=== PATIENT | male | born 1995 | race Caucasian/White ===

== ENCOUNTER 2017-04-03 07:56 | Emergency (ER) | payer BC ==
[2017-04-03 08:01] VITALS: BP 140/72
--- NOTE | 2017-04-03 11:30 | UC ---
Jun Ruelas Benjamin, scribed for Saadia Belle DO on 04/03/17 at 0838 . Throat Pain/Nasal Quoc HPI - HPI Summary HPI Summary: 21yo male reports inhaling dust last week, and shortly after, started to develop sore throat. Next day, pt started having fever, JUSTIN, body aches, and cough with green phlegm. Cough is interfering with sleep. Pt has been taking ibuprofen for his fever. Denies any ear aches, N/V, CP or SOB. No significant PMHx and FHX includes DM and HTN. - History of Current Complaint Chief Complaint: UCGeneralIllness Stated Complaint: RESP Time Seen by Provider: 04/03/17 08:28 Hx Obtained From: Patient Onset/Duration: Gradual Onset, Lasting Weeks - 1 week, Still Present Severity: Mild Pain Intensity: 3 Pain Scale Used: 0-10 Numeric Cough: Productive - green Associated Signs & Symptoms: Positive: Sinus Discomfort, Fever. Negative: Dysphagia, Drooling, Wheezing, Hoarseness, Vomiting - Allergies/Home Medications Allergies/Adverse Reactions: Allergies Allergy/AdvReac Type Severity Reaction Status Date / Time No Known Allergies Allergy Verified 04/03/17 08:02 PMH/Surg Hx/FS Hx/Imm Hx Previously Healthy: Yes Other History Of: Negative For: HIV, Hepatitis B, Hepatitis C - Surgical History Surgical History: Yes Surgery Procedure, Year, and Place: varicocele - Family History Known Family History: Positive: Hypertension, Diabetes - Social History Occupation: Employed Full-time Lives: With Family Alcohol Use: Rare Substance Use Type: None Smoking Status (MU): Never Smoked Tobacco Review of Systems Constitutional: Fever Skin: Negative Eyes: Negative ENT: Sore Throat, Nasal Discharge Respiratory: Cough Cardiovascular: Negative Gastrointestinal: Negative Genitourinary: Negative Motor: Negative Neurovascular: Negative Musculoskeletal: Negative Neurological: Headache Psychological: Negative All Other Systems Reviewed And Are Negative: Yes Physical Exam Triage Information Reviewed: Yes Appearance: Well-Appearing, No Pain Distress, Well-Nourished Vital Signs: Initial Vital Signs Temp 98.6 F 04/03/17 07:59 Pulse 74 04/03/17 07:59 Resp 16 04/03/17 07:59 BP 140/72 04/03/17 07:59 Pulse Ox 100 04/03/17 07:59 Vital Signs Reviewed: Yes Eyes: Positive: Conjunctiva Clear. Negative: Discharge ENT: Positive: Hearing grossly normal, Pharynx normal, Nasal congestion, Nasal drainage, TMs normal. Negative: Tonsillar swelling, Tonsillar exudate, Trismus , Muffled/hoarse voice Neck exam: Normal Neck: Positive: Supple, Nontender, No Lymphadenopathy Respiratory: Positive: Lungs clear, No respiratory distress, No accessory muscle use, Expiration - prolonged expiration at the bases Cardiovascular: Positive: RRR, No Murmur Musculoskeletal Exam: Normal Musculoskeletal: Positive: Strength Intact, ROM Intact Neurological: Positive: Alert, Muscle Tone Normal Psychological: Positive: Age Appropriate Behavior Skin Exam: Normal, Other - warm, dry, normal color Throat Pain/Nasal Course/Dx - Differential Dx/Diagnosis Differential Diagnosis/HQI/PQRI: Pharyngitis, Sinusitis, URI Provider Diagnoses: uri, bronchospasm Discharge - Discharge Plan Condition: Stable Disposition: HOME Prescriptions: Albuterol HFA INHALER* [Ventolin HFA Inhaler*] 2 puff INH Q4H PRN #1 mdi PRN Reason: Sob/Wheezing guaiFENesin ER TAB [Mucinex*] 600 mg PO BID PRN #1 box PRN Reason: Cough guaiFENesin/CODIEN 100MG-10MG* [Robitussin AC 100Mg-10Mg*] 5 - 10 ml PO BEDTIME PRN #100 udc MDD 10ml PRN Reason: Cough Patient Education Materials: Bronchospasm (ED), Upper Respiratory Infection (ED ) Referrals: No Primary Care Phys,NOPCP [Primary Care Provider] - (IF YOUR SYMPTOMS PERSIST FOR 4-7 MORE DAYS, FOLLOW UP WITH YOUR PCP AT [facility] FOR RE-EVALUATION) Additional Instructions: TRY USING THE NETTI POT IN THE MORNINGS DISCUSSED. YOU MUST ALWAYS USE CLEAN WATER. INHALED BRONCHODILATORS: You have received a prescription for an inhaled bronchodilator -- a medication which stimulates the airways in the lung to dilate. This improves the flow of air in asthma, bronchitis, and emphysema. These medicines have some similarity to adrenaline, and can cause similar side effects: shakiness, racing heart, and a sense of nervousness. These side effects decrease with time. Contact your doctor if these side effects are severe. Do not over-use the medicine. Too-frequent use of the inhaler may make it ineffective. Call your doctor if the inhaler is not controlling your symptoms at the prescribed doses. COUGH-SUPPRESSANT & EXPECTORANT MEDICATION: You are to use a cough medication as needed for relief of symptoms. This medicine is a combination of an expectorant (to make the mucous thinner and more easily "coughed up") and a cough suppressant (to reduce the frequency of coughing). The cough-suppressant medicine is related to narcotics. You may experience mild nausea and sleepiness. Some patients who are very sensitive to narcotics may have stomach pain from this medicine. Taking the medicine with food reduces these side effects. Do not drive or work with machinery until you know how this medicine affects you. The expectorant should have no side effects. Iodine-containing expectorants (such as organidin) should not be taken by persons with active thyroid disease unless approved by your doctor. Call the doctor if you develop shortness of breath, hives, rash, itching, lightheadedness, or severe nausea and vomiting. EXPECTORANT MEDICATION: An expectorant medicine has been prescribed. This type of drug makes mucous thinner, helping the sinuses, nose, and bronchial tubes to remain free of pus and mucous. Expectorants make a cough less severe and more comfortable, and help infected sinuses drain. In general, antihistamines defeat the purpose of the expectorant by making mucous thicker. They should be avoided unless specifically recommended by your physician. The documentation as recorded by the Jun chris Benjamin accurately reflects the service I personally performed and the decisions made by , Saadia Belle DO.
== END 2017-04-03 08:51 | disposition home or self-care (01) ==
LOC: UCEAST 07:56
DX: J06.9 Acute upper respiratory infection, unspecified (principal); J98.01 Acute bronchospasm
CPT/HCPCS: 99212; G0463

== ENCOUNTER 2018-08-04 12:04 | Emergency (ER) | payer BC ==
[2018-08-04 13:17] VITALS: BP 113/78
--- NOTE | 2018-08-04 14:07 | UC ---
Abdominal Pain Male HPI - HPI Summary HPI Summary: Patient has not had a BM in about 5 days. Reports last BM was hard to pass and small in size. Appetite has been normal. Patient eating and drinking well. Denies abdominal pain, nausea/vomiting, fever. Is passing gas. - History of Current Complaint Chief Complaint: UCGI Stated Complaint: CONSTIPATION Time Seen by Provider: 08/04/18 13:26 Hx Obtained From: Patient Onset/Duration: Lasting Days, Still Present Timing: Constant Severity Initially: Moderate Severity Currently: Moderate Pain Intensity: 3 Pain Scale Used: 0-10 Numeric Aggravating Factor(s): Nothing Alleviating Factor(s): Nothing Associated Signs And Symptoms: Positive: Constipation - Allergies/Home Medications Allergies/Adverse Reactions: Allergies Allergy/AdvReac Type Severity Reaction Status Date / Time No Known Allergies Allergy Verified 08/04/18 13:18 Home Medications: Home Medications Atomoxetine(NF) [Strattera(NF)] 100 mg PO 08/04/18 [History] PMH/Surg Hx/FS Hx/Imm Hx Previously Healthy: Yes Other History Of: Negative For: HIV, Hepatitis B, Hepatitis C - Surgical History Surgical History: Yes Surgery Procedure, Year, and Place: varicocectomy - Family History Known Family History: Positive: Hypertension, Diabetes Family History: CANCER - Social History Alcohol Use: Occasionally Substance Use Type: None Smoking Status (MU): Never Smoked Tobacco Type: Smokeless Tobacco Review of Systems Constitutional: Negative Respiratory: Negative Cardiovascular: Negative Gastrointestinal: Other - CONSTIPATION Genitourinary: Negative All Other Systems Reviewed And Are Negative: Yes Physical Exam Triage Information Reviewed: Yes Appearance: Well-Appearing, No Pain Distress, Well-Nourished Vital Signs: Initial Vital Signs Temp 97.6 F 08/04/18 13:12 Pulse 115 08/04/18 13:12 Resp 18 08/04/18 13:12 BP 113/78 08/04/18 13:12 Pulse Ox 99 08/04/18 13:12 Vital Signs Reviewed: Yes Eyes: Positive: Conjunctiva Clear ENT: Positive: Hearing grossly normal Neck: Positive: Supple Respiratory Exam: Normal Cardiovascular Exam: Normal Abdomen Description: Positive: Nontender, Soft. Negative: CVA Tenderness (R), CVA Tenderness (L), Distended, Guarding Bowel Sounds: Positive: Hypoactive Musculoskeletal: Positive: No Edema Neurological: Positive: Alert Psychological: Positive: Age Appropriate Behavior Skin: Negative: rashes Abd Pain Male Course/Dx - Course Course Of Treatment: Abdominal exam benign. Advised MiraLAX. Patient to follow -up with GI if he has recurrent bowel habit changes. - Differential Dx/Clinical Impression Provider Diagnoses: CONSTIPATION Discharge - Sign-Out/Discharge Documenting (check all that apply): Patient Departure All imaging exams completed and their final reports reviewed: No Studies - Discharge Plan Condition: Stable Disposition: HOME Patient Education Materials: Constipation (ED) Forms: *Work Release Referrals: No Primary Care Phys,NOPCP [Primary Care Provider] - Additional Instructions: TAKE OTC MIRALAX TWICE DAILY UNTIL YOU HAVE A BM. ENSURE ADEQUATE HYDRATION. IF YOU HAVE RECURRENT ISSUES WITH CONSTIPATION OR OTHER BOWEL HABIT CHANGES FOLLOW-UP WITH GI FOR FURTHER EVALUATION. GO TO THE ED WITHOUT FAIL IF YOU ARE UNABLE TO PASS GAS OR IF YOU DEVELOP INCREASING PAIN, FEVER, NAUSEA, BLOOD PER RECTUM OR ANY OTHER CONCERNING SYMPTOMS. [facility] Address: [facility], [place] [id number] - Billing Disposition and Condition Condition: STABLE Disposition: Home
== END 2018-08-04 14:05 | disposition home or self-care (01) ==
LOC: UCEAST 12:04
DX: K59.00 Constipation, unspecified (principal)
CPT/HCPCS: 99211; G0463

== ENCOUNTER 2018-09-22 17:13 | Emergency (ER) | payer BC ==
[2018-09-22 17:35] VITALS: BP 149/96
--- NOTE | 2018-09-22 18:34 | UC ---
Cardiac HPI - HPI Summary HPI Summary: 22-year-old male who comes to clinic today with a chief complaint of right upper splinting chest pain. It started 2 days ago. It's worse with movement and taking deep breaths. He's had upper respiratory tract infection symptoms for several days. He's having sputum production and a cough. He feels congestion in his chest. Does not feel short of breath at rest. No calf pain or edema. His grandfather had a blood clot but there is no closer relatives with a history of clotting. He is not a smoker. No recent travel. - History of Current Complaint Chief Complaint: UCRespiratory Stated Complaint: CHEST CONGESTION Time Seen by Provider: 09/22/18 18:17 Pain Intensity: 4 - Allergy/Home Medications Allergies/Adverse Reactions: Allergies Allergy/AdvReac Type Severity Reaction Status Date / Time No Known Allergies Allergy Verified 09/22/18 17:35 PMH/Surg Hx/FS Hx/Imm Hx Previously Healthy: Yes Other History Of: Negative For: HIV, Hepatitis B, Hepatitis C - Surgical History Surgical History: Yes Surgery Procedure, Year, and Place: varicocectomy - Family History Known Family History: Positive: Hypertension, Diabetes Family History: CANCER - Social History Alcohol Use: Weekly Substance Use Type: None Smoking Status (MU): Current Some Day Smoker Type: Smokeless Tobacco Review of Systems All Other Systems Reviewed And Are Negative: Yes Constitutional: Positive: Negative Skin: Positive: Negative Eyes: Positive: Negative ENT: Positive: Nasal Discharge, Sinus Congestion Respiratory: Positive: Cough Cardiovascular: Positive: Chest Pain Gastrointestinal: Positive: Negative Motor: Positive: Negative Neurovascular: Positive: Negative Musculoskeletal: Positive: Negative Neurological: Positive: Negative Psychological: Positive: Negative Is Patient Immunocompromised?: No Physical Exam Triage Information Reviewed: Yes Appearance: Well-Appearing, No Pain Distress, Well-Nourished Vital Signs: Initial Vital Signs Temp 99.6 F 09/22/18 17:29 Pulse 81 09/22/18 17:29 Resp 16 09/22/18 17:29 BP 149/96 09/22/18 17:29 Pulse Ox 98 09/22/18 17:29 Vital Signs Reviewed: Yes Eye Exam: Normal Eyes: Positive: Conjunctiva Clear ENT: Positive: Nasal congestion, Nasal drainage, TMs normal Neck exam: Normal Neck: Positive: Supple Respiratory: Positive: Chest non-tender, No respiratory distress, No accessory muscle use, Rhonchi Cardiovascular: Positive: RRR Abdomen Description: Positive: Nontender, Soft Bowel Sounds: Positive: Present Musculoskeletal Exam: Normal Musculoskeletal: Positive: Strength Intact, ROM Intact Neurological Exam: Normal Neurological: Positive: Alert, Muscle Tone Normal Psychological Exam: Normal Psychological: Positive: Normal Response To Family, Age Appropriate Behavior Skin Exam: Normal - Assessment/Plan Course Of Treatment: I discussed the possibilities of the cause of the pain. Most likely the pain is secondary to infection. Did mention cardiac causes and also pulmonary embolus. I am not concerned about cardiac cause due to the patient's age location of the pain and symptoms of her we did discuss the symptoms of pericarditis. Pulmonary embolus is unlikely given the patient has no pedal edema or calf pain he has no history of clotting disorder is not a smoker. We did discuss that if he got worse he needs to the emergency department. I discussed the chest x-ray with the patient and his partner. I do not see a pneumothorax or pneumonia. Radiologist reading is pending. We will start a azithromycin and albuterol. Follow-up with his primary care doctor if not completely improved return here if worse or any concerns. - Clinical Impression Provider Diagnosis: Bronchitis with bronchospasm Discharge - Sign-Out/Discharge Documenting (check all that apply): Patient Departure All imaging exams completed and their final reports reviewed: No - Discharge Plan Condition: Stable Disposition: HOME Prescriptions: Albuterol HFA INHALER* [Ventolin HFA Inhaler*] 2 puff INH Q4H PRN #1 mdi PRN Reason: Wheezing Azithromyxin ADALID (NF) [Z-Adalid (Zithromax) 250 mg tabs #6] 2 tab PO .TODAY, THEN 1 DAILY #6 tab Patient Education Materials: Acute Bronchitis (ED), Bronchospasm (ED), Chest Pain (ED) Referrals: [facility] [Outside] Additional Instructions: FOLLOW UP WITH YOUR DOCTOR IF NOT COMPLETELY IMPROVED. GET RECHECKED FOR ANY WORSENING OF YOUR CONDITION; PAIN, SHORTNESS OF BREATH, YOU FEEL ILL OR QUESTIONS OR CONCERNS. - Billing Disposition and Condition Condition: STABLE Disposition: Home
--- NOTE | 2018-09-23 08:30 | UC ---
- Progress Note Progress Note: RADIOLOGY REPORT REVIEWED. CXR UNREMARKABLE. NO CHANGE IN MGMT. Course/Dx - Diagnoses Provider Diagnoses: Bronchitis with bronchospasm Discharge - Sign-Out/Discharge Documenting (check all that apply): Post-Discharge Follow Up All imaging exams completed and their final reports reviewed: Yes - Discharge Plan Condition: Stable Disposition: HOME Prescriptions: Albuterol HFA INHALER* [Ventolin HFA Inhaler*] 2 puff INH Q4H PRN #1 mdi PRN Reason: Wheezing Azithromyxin ADALID (NF) [Z-Adalid (Zithromax) 250 mg tabs #6] 2 tab PO .TODAY, THEN 1 DAILY #6 tab Patient Education Materials: Chest Pain (ED), Acute Bronchitis (ED), Bronchospasm (ED) Referrals: [facility] [Outside] Additional Instructions: FOLLOW UP WITH YOUR DOCTOR IF NOT COMPLETELY IMPROVED. GET RECHECKED FOR ANY WORSENING OF YOUR CONDITION; PAIN, SHORTNESS OF BREATH, YOU FEEL ILL OR QUESTIONS OR CONCERNS. - Billing Disposition and Condition Condition: STABLE Disposition: Home
== END 2018-09-22 19:00 | disposition home or self-care (01) ==
LOC: UCEAST 17:13
DX: J20.9 Acute bronchitis, unspecified (principal); F17.210 Nicotine dependence, cigarettes, uncomplicated
CPT/HCPCS: 71046; 99212; G0463

== ENCOUNTER 2022-06-12 21:16 | Inpatient (IN) ==
[2022-06-12 23:53] LABS: ABS Eosinophils 0.2 10^3/ul (0-0.6); ABS Lymphocytes 2.9 10^3/ul (1.0-4.8); ABS Monocytes 0.5 10^3/ul (0-0.8); ABS Neutrophils 4.2 10^3/ul (1.5-7.7); Eosinophil % 2.3 %; Hematocrit 47 % (42-52); Hemoglobin 15.8 g/dL (14.0-18.0); Lymphocyte % 36.7 %; Mean Corpuscular HGB Conc 34 g/dL (31-36); Mean Corpuscular Hemoglobin 30 pg (27-31); Mean Corpuscular Volume 88 fL (80-94); Mean Platelet Volume 7.5 fL (7.4-10.4); Nucleated Red Blood Cells % 0.1; Platelet Count 230 10^3/uL (150-450); Red Blood Count 5.28 10^6 /uL (4.18-5.48); Red Cell Distribution Width 14 % (10-15); White Blood Count 7.8 10^3/uL (3.5-10.8)
[2022-06-12 23:59] LABS: Urine Benzodiazepine Screen None Detected (None Detect); Urine Cannabinoids Screen None Detected (None Detect); Urine Opiates Screen None Detected (None Detect)
[2022-06-13 00:10] LABS: Urine Appearance Clear; Urine Bilirubin Negative (Negative); Urine Blood Trace (Intact) (Negative); Urine Color Yellow; Urine Glucose Negative (Negative); Urine Ketones Negative (Negative); Urine Nitrite Negative (Negative); Urine Protein Trace (Negative); Urine Specific Gravity 1.021 (1.002-1.030); Urine Urobilinogen 0.2 (Negative) (Negative)
[2022-06-13 00:22] LABS: Urine Bacteria Absent (Absent); Urine Red Blood Cell Trace(0-2/hpf) (Absent); Urine White Blood Cell Trace(0-5/hpf) (Absent)
[2022-06-13 00:40] LABS: ALT 67 U/L (7-52); AST 37 U/L (13-39); Acetaminophen < 15 mcg/mL; Albumin/Globulin Ratio 1.6 (1-3); Alcohol, S 135 mg/dL (<13); Alkaline Phosphatase 53 U/L (35-149); Anion Gap 13 mmol/L (2-11); Blood Urea Nitrogen 25 mg/dL (6-24); CO2 Carbon Dioxide 22 mmol/L (22-32); Calcium 9.4 mg/dL (8.6-10.3); Chloride 103 mmol/L (101-111); Globulin 3.2 g/dL (2-4); Glucose 90 mg/dL (70-100); Potassium 3.6 mmol/L (3.5-5.0); Salicylate < 2.50 mg/dL (<30); Sodium 138 mmol/L (135-145); Total Protein 8.2 g/dL (6.4-8.9); eGFR CKD-EPI 93.8 (>60)
[2022-06-13 00:54] LABS: TSH Ultra Thyroid Stim Horm 4.53 mcIU/mL (0.34-5.60)
[2022-06-13] MEDS ORDERED: Al Hydrox/Mg Hydrox/Simet LIQ 30 ML UDC PO PRN (04:14)
[2022-06-13] MEDS ORDERED: LORazepam PO 0-6 for WAM protocol PO SCH (05:00)
[2022-06-13] MEDS: Vitamin THERAPEUTIC TAB PO SCH (08:42)
[2022-06-13] MEDS: Nicotine GUM 2MG FRUIT FLAVOR PO PRN (18:53)
[2022-06-14 09:38] VITALS: BP 135/90
[2022-06-14] MEDS: Nicotine GUM 2MG FRUIT FLAVOR PO PRN ×2 (10:53→13:47)
[2022-06-14] MEDS: Vitamin THERAPEUTIC TAB PO SCH (10:55)
== END 2022-06-14 15:00 | disposition home or self-care (01) | DRG 885 ==
LOC: ED 21:16 → BSU 06-13 02:40
PROVIDERS: ADMIT Psychiatry & Neurology Psychiatry; ATTEND Psychiatry & Neurology Psychiatry